=== PATIENT | female | born 1990 ===

== ENCOUNTER 2023-04-18 20:07 | Inpatient (IN) | payer BC ==
[2023-04-18] MEDS ORDERED: Water For Irrigation,Sterile 1,000 ML Container IRR PRN (20:45)
[2023-04-18] MEDS ORDERED: Ondansetron 4 MG/2 ML SDV IVPUSH PRN (20:45)
[2023-04-18] MEDS ORDERED: Tranexamic Acid 1,000 MG in Sodium Chloride 0.9% 100 ML IV PRN (20:45)
[2023-04-18] MEDS ORDERED: Sodium Chloride 0.9% 10 ML Syringe FLUSH PRN (20:45)
[2023-04-18] MEDS ORDERED: Sodium Chloride 0.9% 2.5 ML Syringe FLUSH PRN (20:45)
[2023-04-18] MEDS ORDERED: Methylergonovine 0.2 MG/1 ML Amp IM PRN (20:45)
[2023-04-18] MEDS ORDERED: Carboprost Tromethamine 250 MCG/1 mL Vial IM PRN (20:45)
[2023-04-18] MEDS ORDERED: Lidocaine 1% 50 ML MDV INJECT PRN (20:45)
[2023-04-18] MEDS ORDERED: Misoprostol 200 MCG Tab PO PRN (20:45)
[2023-04-18] MEDS ORDERED: Lactated Ringers 1,000 ML IV SCH (20:45)
[2023-04-18] MEDS ORDERED: Sodium Chloride 0.9% 20 ML SDV IV PRN (20:45)
[2023-04-18] MEDS ORDERED: Butorphanol 1 MG/ML SDV IVPUSH PRN (20:45)
[2023-04-18] MEDS ORDERED: Oxytocin/0.9 % Sodium Chloride 30 UNIT/500 ML BAG IV SCH (20:45)
[2023-04-18 21:10] LABS: HEMATOCRIT 39.5 % (36.0-46.0); HEMOGLOBIN 13.3 g/dL (12.0-16.0); MEAN CORPUSCULAR HEMOGLOBIN 30.6 pg (27.0-32.0); MEAN CORPUSCULAR HGB CONC 33.7 g/dL (31.0-37.0); PLATELET COUNT,PLT 176 K/uL (150-400); RED BLOOD CELL COUNT 4.34 M/uL (4.30-5.90); WHITE BLOOD CELL COUNT,WBC 8.46 K/uL (4.0-11.0)
[2023-04-18] MEDS ORDERED: oxyCODONE 5 MG Tab PO PRN (21:16)
[2023-04-18] MEDS ORDERED: Lanolin 100% Cream 7 GM Tube TOP PRN (21:16)
[2023-04-18] MEDS ORDERED: Ibuprofen 400 MG Tab PO PRN (21:16)
[2023-04-18] MEDS ORDERED: Bisacodyl 10 MG Supp RECTAL PRN (21:16)
[2023-04-18] MEDS ORDERED: Witch Hazel Medicated Pads 40/Jar TOP PRN (21:16)
[2023-04-18] MEDS ORDERED: Acetaminophen 500 MG Tab PO PRN (21:16)
[2023-04-18] MEDS ORDERED: Benzocaine/Menthol 20%-0.5% Spray 78 GM Cannister TOP PRN (21:16)
[2023-04-18] MEDS ORDERED: Docusate Sodium 100 MG Cap PO PRN (21:16)
[2023-04-18] MEDS ORDERED: Ibuprofen 800 MG Tab PO PRN (21:16)
[2023-04-18] MEDS: Acetaminophen 500 MG Tab PO PRN (22:17)
[2023-04-19 06:06] LABS: HEMATOCRIT 35.3 % (36.0-46.0)
[2023-04-19] MEDS: Acetaminophen 500 MG Tab PO PRN (14:08)
[2023-04-20 14:33] VITALS: BP 100/68; PULSE 85
== END 2023-04-20 15:18 | disposition home or self-care (01) | DRG 560 ==
LOC: MW.OB 20:07 → MW.OBCHECK 20:07 → MW.OB 20:45 → OBSVTOIN 21:50 → MW.OB 04-19 00:47
PROVIDERS: ADMIT Obstetrics & Gynecology; ATTEND Obstetrics & Gynecology
PROC: 10E0XZZ Delivery of Products of Conception, External Approach (ICD-10-PCS; principal; 2023-04-18)
DX: O80 Encounter for full-term uncomplicated delivery (principal); Z37.0 Single live birth; Z3A.39 39 weeks gestation of pregnancy; Z88.0 Allergy status to penicillin
CPT/HCPCS: 36415; 59025; 59409; 85014; 85018; 85027; 86592; 86850; 86900; 86901; A9270-GY; J2590; J7120